=== PATIENT | female | born 2005 | race African-American/Black ===

== ENCOUNTER 2025-03-16 17:26 | Emergency (ER) | payer SELFPAY ==
[2025-03-16] MEDS: Lidocaine 2% Viscous Solution 15 ML UD PO ONE (21:36)
[2025-03-16] MEDS: Benzocaine 20% Topical Spray UD MUCMEM ONE (21:36)
[2025-03-16] MEDS: Amoxicillin/Clavulanate K 875-125 MG Tab PO ONE (21:36)
== END 2025-03-16 21:39 | disposition home or self-care (01) ==
LOC: MW.ED 17:26
DX: K08.89 Other specified disorders of teeth and supporting structures (principal); Z75.3 Unavailability and inaccessibility of health-care facilities; Z86.16 Personal history of COVID-19
CPT/HCPCS: 99282; A9270; J3490